=== PATIENT | male | born 1940 | race Caucasian/White ===

== ENCOUNTER 2017-11-12 16:57 | Observation (INO) | payer MEDICARE ==
[~2017-11-12] VITALS: Ht 175.3 cm; Wt 75.0 kg
[2017-11-12 17:12] VITALS: BP 184/92; PULSE 78; RESP 16; TEMP 97.5; O2SAT 98
--- NOTE | 2017-11-12 17:30 | PD ---
HPI Chief Complaint: Laceration/Skin Injury Time Seen by Provider: 17:08 Travel History International Travel<30 days: No Contact w/Intl Traveler<30days: No Traveled to known affect area: No History of Present Illness HPI 77-year-old male came to the emergency room with history of a fall in the [facility] when he was trying to reach out for a cup. Patient has history of recurrent falls. Patient does not remember exactly what happened and says he does not know if he passed out before or after. Patient has a forehead laceration. Vital signs are relatively stable. Patient is currently awake and answering questions. He complains of slight headache. The pain is mostly localized over the laceration area. Patient is on Plavix and the wound seems to be bleeding. Patient thinks that his last tetanus shot was less than 5 years ago. [facility] Past Medical History Narrative Medical List of his past medical, surgical, social and family history is reviewed from the nursing note Cardiovascular Problems: No Diabetes: No Social History Tobacco Use: No Allergies-Medications (Allergen,Severity, Reaction): Coded Allergies: No Known Allergies (Unverified , 11/12/17) Comments No known drug allergies per Reported Meds & Prescriptions Reported Meds & Active Scripts Active Reported Vitamin C (Ascorbic Acid) 250 Mg Chew 500 Mg CHEW DAILY Sucralfate 1 Gram Tab 1 Gm PO QID on empty stomach Potassium Chloride ER (Potassium Chloride) 10 Meq Cap 10 Meq PO BID Omeprazole 20 Mg Tab 20 Mg PO DAILY [place] (Hydrocodone-Acetaminophen) 5 Mg-325 Mg Tab 1 Tab PO Q4H PRN Multi-Vitamin Daily (Multiple Vitamin) 1 Tab Tab 1 Tab PO DAILY Melatonin 5 Mg Tab 3 Mg PO HS Lexapro (Escitalopram Oxalate) 10 Mg Tab 10 Mg PO DAILY Ibuprofen 800 Mg Tab 800 Mg PO Q6HR PRN Mucus Relief ER (Guaifenesin) 600 Mg Tab 600 Mg PO BID PRN Furosemide 20 Mg Tab 20 Mg PO BID Clopidogrel (Clopidogrel Bisulfate) 75 Mg Tab 75 Mg PO DAILY Bisacodyl EC (Bisacodyl) 5 Mg Tabec 5 Mg PO DAILY PRN Narrative Medication List of his home medications reviewed from the nursing note. Review of Systems Except as stated in HPI: all other systems reviewed are Neg HENT: Positive: Headaches Physical Exam Narrative GENERAL: Awake, alert, elderly, frail, mild distress SKIN: Focused skin assessment warm/dry. 2 inch forehead laceration that has jagged edges. Wound is bleeding. HEAD: Atraumatic. Normocephalic. EYES: Pupils equal and round. No scleral icterus. No injection or drainage. ENT: No nasal bleeding or discharge. Mucous membranes pink and moist. NECK: Trachea midline. No JVD. CARDIOVASCULAR: Regular rate and rhythm. No murmur appreciated. RESPIRATORY: No accessory muscle use. Clear to auscultation. Breath sounds equal bilaterally. GASTROINTESTINAL: Abdomen soft, non-tender, nondistended. Hepatic and splenic margins not palpable. MUSCULOSKELETAL: No obvious deformities. No clubbing. No cyanosis. No edema. NEUROLOGICAL: Awake and alert. No obvious cranial nerve deficits. Motor grossly within normal limits. Normal speech. PSYCHIATRIC: Appropriate mood and affect; insight and judgment normal. Data Data Last Documented VS Vital Signs Date Time Temp Pulse Resp B/P (MAP) Pulse Ox O2 Delivery O2 Flow Rate FiO2 11/12/17 17:12 97.5 78 16 184/92 (122) [address] Brain W/O Iv Contrast(Rout) (11/12/17 ) Ct Cerv Spine W/O Contrast (11/12/17 ) Complete Blood Count With Diff (11/12/17 17:34) Basic Metabolic Panel (Bmp) (11/12/17 17:34) Prothrombin Time / Inr (Pt) (11/12/17 17:34) Urinalysis - C+S If Indicated (11/12/17 17:34) Electrocardiogram (11/12/17 ) Drilling Inspector / Telemetry DORY.Q8H (11/12/17 17:34) Sodium Polysty Sulfate Liq (Kayexalate L (11/12/17 19:15) Calcium Gluconate Inj (Calcium Gluconate (11/12/17 19:15) Sodium Bicarbonate 8.4% Inj (Sodium Bica (11/12/17 19:30) Admit Order (Ed Use Only) (11/12/17 19:26) Labs Laboratory Tests Test 11/12/17 18:15 11/12/17 18:50 White Blood Count 4.8 TH/MM3 Red Blood Count 3.45 MIL/MM3 Hemoglobin 9.5 GM/DL Hematocrit 29.7 % Mean Corpuscular Volume 85.9 FL Mean Corpuscular Hemoglobin 27.4 PG Mean Corpuscular Hemoglobin Concent 31.8 % Red Cell Distribution Width 31.3 % Platelet Count 278 TH/MM3 Mean Platelet Volume 8.4 FL Neutrophils (%) (Auto) 55.5 % Lymphocytes (%) (Auto) 22.5 % Monocytes (%) (Auto) 17.4 % Eosinophils (%) (Auto) 3.0 % Basophils (%) (Auto) 1.6 % Neutrophils # (Auto) 2.7 TH/MM3 Lymphocytes # (Auto) 1.1 TH/MM3 Monocytes # (Auto) 0.8 TH/MM3 Eosinophils # (Auto) 0.1 TH/MM3 Basophils # (Auto) 0.1 TH/MM3 CBC Comment AUTO DIFF Differential Comment AUTO DIFF CONFIRMED Prothrombin Time 11.1 SEC Prothromb Time International Ratio 1.1 RATIO Blood Urea Nitrogen 17 MG/DL Creatinine 1.35 MG/DL Random Glucose 85 MG/DL Calcium Level 9.0 MG/DL Sodium Level 142 MEQ/L Potassium Level 5.7 MEQ/L Chloride Level 108 MEQ/L Carbon Dioxide Level 29.2 MEQ/L Anion Gap 5 MEQ/L Estimat Glomerular Filtration Rate 51 ML/MIN Urine Color LIGHT-YELLOW Urine Turbidity CLEAR Urine pH 7.5 Urine Specific [place] 1.005 Urine Protein NEG mg/dL Urine Glucose (UA) NEG mg/dL Urine Ketones NEG mg/dL Urine Occult Blood SMALL Urine Nitrite NEG Urine Bilirubin NEG Urine Urobilinogen LESS THAN 2.0 MG/DL Urine Leukocyte Esterase NEG Urine RBC LESS THAN 1 /hpf Urine WBC 2 /hpf Urine Squamous Epithelial Cells 1 /hpf Urine Mucus FEW /lpf Microscopic Urinalysis Comment CULT NOT INDICATED MDM Medical Decision Making Medical Screen Exam Complete: Yes Emergency Medical Condition: Yes Medical Record Reviewed: Yes Interpretation(s) Twelve-lead EKG was reviewed by me. Normal sinus rhythm, normal axis, peaked T waves. Heart rate of 76 bpm. Differential Diagnosis Intracranial bleed, cervical fracture, electrolyte abnormalities, UTI Narrative Course Blood test results are back. Potassium is elevated. On this I have chosen to treat him with Kayexalate and IV calcium gluconate. I will repeat the potassium in an hour of the treatment. The laceration was repaired by me. Please refer to my procedure note. Patient tolerated the procedure well. CT scan of the head and C-spine was negative for any injury. Given the fact that his fall could be a syncopal episode since patient does not know when it was not witnessed I would like to admit him for observation. Awaiting for the hospitalist callback. Critical Care Narrative Aggregate critical care time was 30 minutes. Time to perform other separately billable procedures was not included in the critical care time. My time did not include minutes spent treating any other patients simultaneously or on activities that did not directly contribute to the patient's treatment. The services I provided to this patient were to treat and/or prevent clinically significant deterioration that could result in: Hyperkalemia, treatment for correction I provided critical care services requiring my management, as noted below: Chart data review, documentation time, medication orders and management, vital sign assessments/reviewing monitor data, ordering and reviewing lab tests, ordering and interpreting/reviewing x-rays and diagnostic studies, care of the patient and discussion of the patient with the admitting physicians. Procedures Procedure Narrative LACERATION LOCATION: Mid forehead LENGTH: 2 inches NUMBER OF STITCHES/MANASA: 6 stitches REPAIR: The area of the laceration was prepped with Betadine and sterilely draped. The laceration was infiltrated with 2.5 mL's of 2% lidocaine. The wound was copiously irrigated and explored without evidence of foreign body, tendon injury or neurovascular injury. The wound was closed using 4-0 Ethilon. This was a single layer repair. A sterile dressing was applied. The patient was advised to keep the dressing clean and dry. Patient tolerated the procedure well. EKG Prior to Arrival: No Diagnosis Primary Impression: Fall Qualified Codes: W19.XXXA - Unspecified fall, initial encounter Additional Impressions: Forehead laceration Qualified Codes: S01.81XA - Laceration without foreign body of other part of head, initial encounter Hyperkalemia Admitting Information Admitting Physician Requests: Observation Hugh Diaz MD Nov 12, 2017 17:30
[2017-11-12] MEDS ORDERED: MELA5 PO (17:42)
[2017-11-12] MEDS ORDERED: LEXA10TA PO (17:42)
[2017-11-12] MEDS ORDERED: MULT-65 PO (17:42)
[2017-11-12] MEDS ORDERED: FLEE5TAB PO (17:42)
[2017-11-12] MEDS ORDERED: OMEP20TA93 PO (17:42)
[2017-11-12] MEDS ORDERED: POTA10CA PO (17:42)
[2017-11-12] MEDS ORDERED: CLOP75TA PO (17:42)
[2017-11-12] MEDS ORDERED: FURO20TA PO (17:42)
[2017-11-12] MEDS ORDERED: NORC5TAB PO (17:42)
[2017-11-12] MEDS ORDERED: SUCR1TAB PO (17:42)
[2017-11-12] MEDS ORDERED: VITA250C3 CHEW (17:42)
[2017-11-12] MEDS ORDERED: IBUP1TAB7 PO (17:42)
[2017-11-12] MEDS ORDERED: GUAI600T11 PO (17:42)
--- NOTE | 2017-11-12 18:00 | RADRPT ---
EXAM DATE/TIME: 11/12/2017 17:47 [facility] COMPARISON: No previous studies available for comparison. INDICATIONS : Trauma, fall forward onto head today. RADIATION DOSE: 33.48 CTDIvol (mGy) MEDICAL HISTORY : Congestive hearrt failure. Gastroesophageal reflux disease. Renal failure, acute. SURGICAL HISTORY : None. ENCOUNTER: Initial ACUITY: 1 day PAIN SCALE: Non-responsive LOCATION: Bilateral head TECHNIQUE: Multiple contiguous axial images were obtained of the head. Using automated exposure control and adj ustment of the mA and/or kV according to patient size, radiation dose was kept as low as reasonably a chievable to obtain optimal diagnostic quality images. DICOM format image data is available electro nically for review and comparison. FINDINGS: CEREBRUM: There is mild generalized atrophy. Ventricles are normal. There is mild periventricular white matter low attenuation. No evidence of midline shift, mass lesion, hemorrhage or acute infarction. No extr a-axial fluid collections are seen. POSTERIOR FOSSA: The cerebellum and brainstem demonstrate no acute finding. The 4th ventricle is midline. The cerebe llopontine angle is unremarkable. EXTRACRANIAL: There is opacification of the left maxillary, left ethmoid, and left frontal sinus. Scalp soft tissue swelling is present anteriorly near the high convexity. SKULL: The calvaria is intact. No evidence of skull fracture. CONCLUSION: 1. Anterior scalp soft tissue swelling near the high convexity. No skull fracture or acute intracrani al abnormality is identified. There are chronic brain changes. 2. There is opacification of the left maxillary, ethmoid, and frontal sinus. The appearance favors a chronic process. Sathish Mcgee MD on November 12, 2017 at 17:55 Board Certified Radiologist. This report was verified electronically.
--- NOTE | 2017-11-12 18:19 | RADRPT ---
EXAM DATE/TIME: 11/12/2017 17:47 [facility] COMPARISON: No previous studies available for comparison. INDICATIONS : Trauma, fall forward onto head today. RADIATION DOSE: 22.24 CTDIvol (mGy) MEDICAL HISTORY : Congestive hearrt failure. Renal failure, acute. Gastroesophageal reflux disease. SURGICAL HISTORY : None. ENCOUNTER: Initial ACUITY: 1 day PAIN SCALE: Non-responsive LOCATION: Bilateral neck TECHNIQUE: Volumetric scanning of the cervical spine was performed. Multiplanar reconstructions in the sagittal, coronal and oblique axial planes were performed. Using automated exposure control and adjustment o f the mA and/or kV according to patient size, radiation dose was kept as low as reasonably achievable to obtain optimal diagnostic quality images. DICOM format image data is available electronically f or review and comparison. FINDINGS: There is 3 mm of anterolisthesis of C3 on C4 likely related to the facet arthrosis at this level. The atlantoaxial relationship is within normal limits. There is no prevertebral soft tissue swelling pre sent. No fracture or dislocation is identified. There is joint space narrowing and osteophytes at the anterior length the dens interval. There is a decreased disc height with endplate osteophytes at C5- C6 and C6-C7. There is facet arthrosis at multiple levels along with uncovertebral osteophytes which cause severe left neural foraminal stenosis at C3-C4, moderate to severe neural foraminal stenosis on the right at C5-C6, and moderate bilateral neural foraminal stenosis at C6-C7. The visualized portions of the posterior fossa, paraspinous soft tissues, and upper lung zones demons trate no acute abnormality. CONCLUSION: 1. No cervical spine fracture or acute abnormality is identified. 2. 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 There are multiple areas of moderate to severe neural foraminal stenosis. Sathish Mcgee MD on November 12, 2017 at 18:12 Board Certified Radiologist. This report was verified electronically.
[2017-11-12 18:36] LABS: AUTOMATED NEUTROPHIL # 2.7 TH/MM3 (1.8-7.7); BASOPHIL # 0.1 TH/MM3 (0-0.2); BASOPHIL % 1.6 % (0.0-2.0); EOSINOPHIL # 0.1 TH/MM3 (0-0.4); HEMATOCRIT 29.7 % (39.0-51.0); HEMOGLOBIN 9.5 GM/DL (13.0-17.0); LYMPH % 22.5 % (9.0-44.0); LYMPHOCYTE # 1.1 TH/MM3 (1.0-4.8); MEAN CELL VOLUME 85.9 FL (80.0-100.0); MEAN CORPUSCULAR HEMOGLOBIN 27.4 PG (27.0-34.0); MEAN CORPUSCULAR HGB CONC 31.8 % (32.0-36.0); MEAN PLATELET VOLUME 8.4 FL (7.0-11.0); MONO % 17.4 % (0.0-8.0); MONOCYTE # 0.8 TH/MM3 (0-0.9); NEUT % 55.5 % (16.0-70.0); PLATELET COUNT 278 TH/MM3 (150-450); RED BLOOD COUNT 3.45 MIL/MM3 (4.50-5.90); RED CELL DISTRIBUTION WIDTH 31.3 % (11.6-17.2); WHITE BLOOD COUNT 4.8 TH/MM3 (4.0-11.0)
[2017-11-12 18:41] LABS: INTERNATIONAL NORMALIZED RATIO 1.1 RATIO; PROTHROMBIN TIME - PATIENT 11.1 SEC (9.8-11.6)
[2017-11-12 19:01] LABS: BICARBONATE 29.2 MEQ/L (21.0-32.0); CREATININE 1.35 MG/DL (0.60-1.30)
[2017-11-12 19:06] LABS: BILIRUBIN, URINE NEG (NEG); BLOOD, URINE SMALL (NEG); GLUCOSE,URINE NEG (NEG); KETONE, URINE NEG (NEG); MUCUS URINE FEW /lpf (OCC); NITRITE,URINE NEG (NEG); PH, URINE 7.5 (5.0-8.5); SQUAMOUS EPITHELIAL CELL URINE 1 /hpf (0-5); URINE COLOR LIGHT-YELLOW (YELLW/STRAW); URINE LEUKOCYTE ESTERASE NEG (NEG)
[2017-11-12] MEDS ORDERED: CALCIUM GLUCONATE 10% 1 GM/10 ML VIAL IV PUSH ONE (19:15)
[2017-11-12] MEDS ORDERED: SODIUM POLYSTYRENE SULFONATE SUSP 15 GM/60 ML CUP PO ONE (19:15)
[2017-11-12] MEDS ORDERED: SODIUM BICARBONATE 8.4% INJ 50 MEQ/50 ML SYR IV PUSH ONE (19:30)
[2017-11-12] MEDS ORDERED: PILL SPLITTER OTHER PRN (20:00)
[2017-11-12] MEDS ORDERED: ACETAMINOPHEN 325 MG TAB PO PRN (20:00)
[2017-11-12] MEDS ORDERED: SODIUM CHLORIDE 0.9% FLUSH 10 ML FLUSH IV FLUSH PRN (20:00)
--- NOTE | 2017-11-12 20:18 | HHI.HP ---
[facility] Gopal Horvath MD Admission Diagnosis Fall, possible syncope, forehead laceration, hyperkalemia Diagnoses: Travel History International Travel<30 Days: No Contact w/Intl Traveler <30 Da: No Traveled to Known Affected Are: No History of Present Illness 77-year-old male with past medical history significant for anemia, diastolic congestive heart failure, hypothyroidism, chronic kidney disease, GERD, dementia and depression presents to the emergency department for evaluation of a fall. The patient reports he was reaching for water in his assisted while lying down and tilted to far, losing his balance and fell to the ground hitting his head. He sustained a 5 cm laceration to his forehead which is status post repair. He denies any loss of consciousness prior to the event but states he may have lost consciousness when he hit the floor for a brief moment. Per assisted report, the patient has been suffering frequent falls. He cannot recount these episodes and states he may or may not have lost consciousness prior to falling in the past. There is a question of syncopal events. The patient denies any nausea/vomiting. No abdominal pain. No chest pain or shortness of breath. No lateralizing signs/symptoms. No fevers/chills. Review of Systems Except as stated in HPI: all other systems reviewed are Neg Past Family Social History Past Medical History (Obtained from assisted records as the patient does not know) anemia, diastolic congestive heart failure, hypothyroidism, chronic kidney disease, GERD, dementia and depression Past Surgical History Bilateral knee surgeries Reported Medications Reported Meds & Active Scripts Active Reported Vitamin C (Ascorbic Acid) 250 Mg Chew 500 Mg CHEW DAILY Sucralfate 1 Gram Tab 1 Gm PO QID on empty stomach Potassium Chloride ER (Potassium Chloride) 10 Meq Cap 10 Meq PO BID Omeprazole 20 Mg Tab 20 Mg PO DAILY [place] (Hydrocodone-Acetaminophen) 5 Mg-325 Mg Tab 1 Tab PO Q4H PRN Multi-Vitamin Daily (Multiple Vitamin) 1 Tab Tab 1 Tab PO DAILY Melatonin 5 Mg Tab 3 Mg PO HS Lexapro (Escitalopram Oxalate) 10 Mg Tab 10 Mg PO DAILY Ibuprofen 800 Mg Tab 800 Mg PO Q6HR PRN Mucus Relief ER (Guaifenesin) 600 Mg Tab 600 Mg PO BID PRN Furosemide 20 Mg Tab 20 Mg PO BID Clopidogrel (Clopidogrel Bisulfate) 75 Mg Tab 75 Mg PO DAILY Bisacodyl EC (Bisacodyl) 5 Mg Tabec 5 Mg PO DAILY PRN Allergies: Coded Allergies: No Known Allergies (Unverified , 11/12/17) Family History Negative for CAD/DM Social History Denies alcohol, tobacco and illicit drugs Physical Exam Vital Signs Vital Signs Date Time Temp Pulse Resp B/P (MAP) Pulse Ox O2 Delivery O2 Flow Rate FiO2 11/12/17 17:12 97.5 78 16 184/92 (122) 98 Physical Exam GENERAL: male lying in bed SKIN: 5 cm forehead laceration status post repair, hemostatic. HEAD: Normocephalic. No temporal or scalp tenderness. EYES: Pupils equal round and reactive. Extraocular motions intact. No scleral icterus. No injection or drainage. ENT: Nose without bleeding, purulent drainage or septal hematoma. Throat without erythema, tonsillar hypertrophy or exudate. Uvula midline. Airway patent. NECK: Trachea midline. No JVD or lymphadenopathy. Supple, nontender, no meningeal signs. CARDIOVASCULAR: Regular rate and rhythm without murmurs, gallops, or rubs. RESPIRATORY: Clear to auscultation. Breath sounds equal bilaterally. No wheezes , rales, or rhonchi. GASTROINTESTINAL: Abdomen soft, non-tender, nondistended. No hepato-splenomegaly , or palpable masses. No guarding. MUSCULOSKELETAL: Extremities without clubbing, cyanosis, or edema. No joint tenderness, effusion, or edema noted. No calf tenderness. NEUROLOGICAL: Awake and alert. Cranial nerves II through XII intact. Motor and sensory grossly within normal limits. Normal speech. Laboratory Laboratory Tests Test 11/12/17 18:15 11/12/17 18:50 White Blood Count 4.8 Red Blood Count 3.45 Hemoglobin 9.5 Hematocrit 29.7 Mean Corpuscular Volume 85.9 Mean Corpuscular Hemoglobin 27.4 Mean Corpuscular Hemoglobin Concent 31.8 Red Cell Distribution Width 31.3 Platelet Count 278 Mean Platelet Volume 8.4 Neutrophils (%) (Auto) 55.5 Lymphocytes (%) (Auto) 22.5 Monocytes (%) (Auto) 17.4 Eosinophils (%) (Auto) 3.0 Basophils (%) (Auto) 1.6 Neutrophils # (Auto) 2.7 Lymphocytes # (Auto) 1.1 Monocytes # (Auto) 0.8 Eosinophils # (Auto) 0.1 Basophils # (Auto) 0.1 CBC Comment AUTO DIFF Differential Comment AUTO DIFF CONFIRMED Prothrombin Time 11.1 Prothromb Time International Ratio 1.1 Blood Urea Nitrogen 17 Creatinine 1.35 Random Glucose 85 Calcium Level 9.0 Sodium Level 142 Potassium Level 5.7 Chloride Level 108 Carbon Dioxide Level 29.2 Anion Gap 5 Estimat Glomerular Filtration Rate 51 Urine Color LIGHT-YELLOW Urine Turbidity CLEAR Urine pH 7.5 Urine Specific [place] 1.005 Urine Protein NEG Urine Glucose (UA) NEG Urine Ketones NEG Urine Occult Blood SMALL Urine Nitrite NEG Urine Bilirubin NEG Urine Urobilinogen LESS THAN 2.0 Urine Leukocyte Esterase NEG Urine RBC LESS THAN 1 Urine WBC 2 Urine Squamous Epithelial Cells 1 Urine Mucus FEW Microscopic Urinalysis Comment CULT NOT INDICATED Result Diagram: 11/12/17181411/12/171814 Caprini VTE Risk Assessment Caprini VTE Risk Assessment: Mod/High Risk (score >= 2) Caprini Risk Assessment Model Point Value = 1 Point Value = 2 Point Value = 3 Point Value = 5 Age 41-60 Minor surgery BMI > 25 kg/m2 Swollen legs Varicose veins or History of unexplained or recurrent spontaneous Oral contraceptives or hormone replacement Sepsis (< 1 month) Serious lung disease, including pneumonia (< 1 month) Abnormal pulmonary function Acute myocardial infarction Congestive heart failure (< 1 month) History of inflammatory bowel disease Medical patient at bed rest Age 61-74 Arthroscopic surgery Major open surgery (> 45 min) Laparoscopic surgery (> 45 min) Malignancy Confined to bed (> 72 hours) Immobilizing plaster cast Central venous access Age >= 75 History of VTE Family history of VTE Factor V Leiden Prothrombin [id number] Lupus anticoagulant Anticardiolipin antibodies Elevated serum homocysteine Heparin-induced thrombocytopenia Other congenital or acquired thrombophilia Stroke (< 1 month) Elective arthroplasty Hip, pelvis, or leg fracture Acute spinal cord injury (< 1 month) Prophylaxis Regimen Total Risk Factor Score Risk Level Prophylaxis Regimen 0-1 Low Early ambulation 2 Moderate Order ONE of the following: *Sequential Compression Device (SCD) *Heparin 5000 units SQ BID 3-4 Higher Order ONE of the following medications: *Heparin 5000 units SQ TID *Enoxaparin/Lovenox 40 mg SQ daily (WT < 150 kg, CrCl > 30 mL/min) *Enoxaparin/Lovenox 30 mg SQ daily (WT < 150 kg, CrCl > 10-29 mL/min) *Enoxaparin/Lovenox 30 mg SQ BID (WT < 150 kg, CrCl > 30 mL/min) AND/OR *Sequential Compression Device (SCD) 5 or more Highest Order ONE of the following medications: *Heparin 5000 units SQ TID (Preferred with Epidurals) *Enoxaparin/Lovenox 40 mg SQ daily (WT < 150 kg, CrCl > 30 mL/min) *Enoxaparin/Lovenox 30 mg SQ daily (WT < 150 kg, CrCl > 10-29 mL/min) *Enoxaparin/Lovenox 30 mg SQ BID (WT < 150 kg, CrCl > 30 mL/min) AND *Sequential Compression Device (SCD) Assessment and Plan Assessment and Plan Assessment/plan: 1. Frequent falls/?syncope Physical therapy consulted, appreciate assistance Syncope workup pending; echo and carotid ultrasound 2. Hyperkalemia Potassium 5.7 Status post calcium gluconate and Kayexalate in ED Repeat BMP pending 3. Chronic kidney disease BUN/creatinine 17/1.35 Baseline unknown Monitor renal function 4. CHF/CAD Continue home medications including Plavix 5. Hypothyroidism/GERD/dementia Continue home medication FEN Heart healthy diet Electrolytes: as above Holding pharmacologic anticoagulation secondary to head trauma Melissa Etienne MD Nov 12, 2017 20:18
[2017-11-12 20:55] VITALS: BP 166/95; PULSE 89; RESP 15; O2SAT 97
[2017-11-12] MEDS ORDERED: MELATONIN 5 MG TAB PO SCH (21:00)
[2017-11-12 21:01] LABS: ALBUMIN 2.3 GM/DL (3.4-5.0); AST (GOT) 33 U/L (15-37); BICARBONATE 28.7 MEQ/L (21.0-32.0); BLOOD UREA NITROGEN 17 MG/DL (7-18); CALCIUM 9.1 MG/DL (8.5-10.1); CHLORIDE 108 MEQ/L (98-107); CREATININE 1.42 MG/DL (0.60-1.30); GLOMERULAR FILTRATION RATE 48 ML/MIN (>89); GLUCOSE,RANDOM 82 MG/DL (74-106); SODIUM (NA) 144 MEQ/L (136-145)
[2017-11-12 21:02] LABS: ALT (GPT) 27 U/L (12-78)
[2017-11-12 21:04] LABS: ALKALINE PHOSPHATASE 260 U/L (45-117); TOTAL BILIRUBIN ADULT 0.3 MG/DL (0.2-1.0); TOTAL PROTEIN 7.8 GM/DL (6.4-8.2)
--- NOTE | 2017-11-12 21:07 | RADRPT ---
EXAM DATE/TIME: 11/12/2017 20:19 [facility] COMPARISON: No previous studies available for comparison. INDICATIONS : Syncope. MEDICAL HISTORY : Congestive heart failure. Gastroesophageal reflux disease. Anemia. Thyroid disease. Acute renal juan a lure. Falls. SURGICAL HISTORY : Total right knee surgery. ENCOUNTER: Initial ACUITY: 1 day PAIN SCORE: 5/10 LOCATION: Bilateral neck PEAK SYSTOLIC VELOCITIES (cm/sec): ICA/CCA RATIO: Right: 1.2 Left: 0.9 ICA: Right: 70 Left: 52 CCA: Right: 56 Left: 60 ECA: Right: 61 Left: 73 VERTEBRAL: Right: 44 antegrade Left: 101 antegrade Elevated flow velocities and ICA/CCA ratios have been found to correlate with increased degrees of vessel stenosis, calculated as percentage of diameter relative to a normal segment of distal ICA/CCA FINDINGS: RIGHT CAROTID: No significant stenosis is visualized. There is atherosclerotic plaque within the mid common carotid artery and carotid bulb. LEFT CAROTID: No significant stenosis is visualized. There is mild atherosclerotic disease in the common carotid ar shayna and carotid bulb. VERTEBRAL ARTERIES: Antegrade flow is seen in both vertebral arteries. MISCELLANEOUS: None. CONCLUSION: 1. Atherosclerotic disease within the carotid bulbs bilaterally. No significant stenosis is identifie d within either internal carotid artery (less than 50% stenosis). 2. There is antegrade flow within both vertebral arteries. Sathish Mcgee MD on November 12, 2017 at 21:03 Board Certified Radiologist. This report was verified electronically.
[2017-11-12] MEDS: SODIUM CHLORIDE 0.9% FLUSH 10 ML FLUSH IV FLUSH SCH (21:58)
[2017-11-12] MEDS: FUROSEMIDE 20 MG TAB PO SCH (21:58)
[2017-11-12 23:23] LABS: BICARBONATE 29.8 MEQ/L (21.0-32.0); CALCIUM 8.7 MG/DL (8.5-10.1); CREATININE 1.31 MG/DL (0.60-1.30)
--- NOTE | 2017-11-12 23:50 | EKG ---
Date Performed: 11/12/2017 Time Performed: 18:01:45 PTAGE: 77 years EKG: Sinus rhythm NON-SPECIFIC ST/T WAVE CHANGES INCOMPLETE RIGHT BUNDLE BRANCH BLOCK BORDERLINE ECG NO PREVIOUS TRACING DOCTOR: Dirk Zimmerman Interpretating Date/Time 11/12/2017 23:49:31
[2017-11-13] VITALS (9 sets, daily range): BP systolic 111–167; BP diastolic 57–76; PULSE 59–81; RESP 16–18; TEMP 97.9–98.4; O2SAT 92–96
[2017-11-13] MEDS: SUCRALFATE 1 GM TAB PO SCH ×4 (00:37→18:00)
[2017-11-13] MEDS ORDERED: CLOPIDOGREL 75 MG TAB PO SCH (09:00)
[2017-11-13] MEDS ORDERED: ESCITALOPRAM OXALATE 10 MG TAB PO SCH (09:00)
[2017-11-13] MEDS ORDERED: PANTOPRAZOLE SOD 20 MG DELAYED RELEASE TAB PO SCH (09:00)
[2017-11-13] MEDS ORDERED: NON-FORMULARY DRUG (Omeprazole 20 MG) PO SCH (09:00)
[2017-11-13] MEDS: SODIUM CHLORIDE 0.9% FLUSH 10 ML FLUSH IV FLUSH SCH (09:11)
[2017-11-13] MEDS: FUROSEMIDE 20 MG TAB PO SCH (09:11)
--- NOTE | 2017-11-13 11:13 | HHI.PR ---
Subjective Remarks in no acute distress. denies pain. no sob, dizziness or chest pain. Objective Vitals Vital Signs Date Time Temp Pulse Resp B/P (MAP) Pulse Ox O2 Delivery O2 Flow Rate FiO2 11/13/17 09:40 97.9 65 16 126/65 (85) 95 120/63 (82) 111/57 (75) 11/13/17 04:00 72 11/13/17 03:27 97.9 69 16 129/57 (81) 92 11/13/17 01:00 65 11/12/17 21:07 11/12/17 20:55 89 15 166/95 (118) 97 Room Air 11/12/17 17:12 97.5 78 16 184/92 (122) 98 Result Diagram: 11/12/17 1815 11/12/17 2251 Imaging Last Impressions Head CT 11/12/17 0000 Signed Impressions: Service Date/Time: Sunday, November 12, 2017 17:47 - CONCLUSION: 1. Anterior scalp soft tissue swelling near the high convexity. No skull fracture or acute intracranial abnormality is identified. There are chronic brain changes. 2. There is opacification of the left maxillary, ethmoid, and frontal sinus. The appearance favors a chronic process. Sathish Mcgee MD Cervical Spine CT 11/12/17 0000 Signed Impressions: Service Date/Time: Sunday, November 12, 2017 17:47 - CONCLUSION: 1. No cervical spine fracture or acute abnormality is identified. 2. 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 There are multiple areas of moderate to severe neural foraminal stenosis. Sathish Mcgee MD Carotid Artery Ultrasound 11/12/17 0000 Signed Impressions: Service Date/Time: Sunday, November 12, 2017 20:19 - CONCLUSION: 1. Atherosclerotic disease within the carotid bulbs bilaterally. No significant stenosis is identified within either internal carotid artery (less than 50%% stenosis). 2. There is antegrade flow within both vertebral arteries. Sathish Mcgee MD Objective Remarks GENERAL: This is a well-nourished, well-developed patient, in no apparent distress. HEENT; sutures in place. CARDIOVASCULAR: Regular rate and regular rhythm without murmurs, gallops, or rubs. RESPIRATORY: Clear to auscultation. Breath sounds equal bilaterally. No wheezes , rales, or rhonchi. GASTROINTESTINAL: Abdomen soft, non-tender, nondistended. Normal, active bowel sounds MUSCULOSKELETAL: Extremities without clubbing, cyanosis, or edema. NEURO: Alert & Oriented x4 to person, place, time, situation. Moves all ext x4 Medications and IVs Inpatient Medications Acetaminophen (Tylenol) 650 mg Q6H PRN PO pain/fever > 100.4; Start 11/12/17 at 20:00 Calcium Gluconate (Calcium Gluconate Inj) 1 gm ONCE ONCE IV PUSH Last administered on 11/12/17 20:18; Start 11/12/17 at 19:15; Stop 11/12/17 at 19:16 ; Status DC Clopidogrel Bisulfate (Plavix) 75 mg DAILY PO Last administered on 11/13/17 09 :12; Start 11/13/17 at 09:00 Escitalopram Oxalate (Lexapro) 10 mg DAILY PO Last administered on 11/13/17 09 :11; Start 11/13/17 at 09:00 Furosemide (Lasix) 20 mg BID PO Last administered on 11/13/17 09:11; Start at 21:00 Melatonin (Melatonin) 2.5 mg HS PO Last administered on 11/12/17at 21:58; Start 11/12/17 at 21:00 Miscellaneous (Pill Splitter) 1 ea UNSCH PRN OTHER SEE LABEL COMMENTS; Start at 20:00 Pantoprazole Sodium (Protonix) 20 mg DAILY PO Last administered on 11/13/17at 09 :11; Start 11/13/17 at 09:00 Sodium Polystyrene Sulfonate (Kayexalate Liq) 15 gm ONCE ONCE PO Last administered on 11/12/17 20:17; Start 11/12/17 at 19:15; Stop 11/12/17 at 19:16 ; Status DC Sodium Bicarbonate (Sodium Bicarbonate 8.4% Inj) 50 meq ONCE ONCE IV PUSH Last administered on 11/12/17 20:18; Start 11/12/17 at 19:30; Stop 11/12/17 at 19:31; Status DC Sodium Chloride (NS Flush) 2 ml BID IV FLUSH Last administered on 11/13/17at 09: 11; Start 11/12/17 at 21:00 Sucralfate (Carafate) 1 gm QID PO Last administered on 11/13/17at 09:11; Start 11/12/17 at 21:00 A/P Assessment and Plan 1. Frequent falls/?syncope carotid doppler with no significant stenosis- echo pending- continue to monitor on telemetry. Physical therapy consulted, appreciate assistance 2. Hyperkalemia-resolved. 3. renal insufficiency with unknown duration- likely chronic. Baseline unknown Monitor renal function 4. CHF/CAD Continue home medications including Plavix 5. Hypothyroidism/GERD/dementia Continue home medication Discharge Planning pending echo and PT evaluation. Tamiko Hernandez MD Nov 13, 2017 11:13
[2017-11-13 12:11] LABS: AUTOMATED NEUTROPHIL # 3.5 TH/MM3 (1.8-7.7); BASOPHIL # 0.2 TH/MM3 (0-0.2); BASOPHIL % 2.9 % (0.0-2.0); EOSINOPHIL # 0.1 TH/MM3 (0-0.4); HEMATOCRIT 28.8 % (39.0-51.0); HEMOGLOBIN 9.3 GM/DL (13.0-17.0); LYMPH % 15.8 % (9.0-44.0); LYMPHOCYTE # 0.8 TH/MM3 (1.0-4.8); MEAN CELL VOLUME 84.9 FL (80.0-100.0); MEAN CORPUSCULAR HEMOGLOBIN 27.5 PG (27.0-34.0); MEAN CORPUSCULAR HGB CONC 32.4 % (32.0-36.0); MEAN PLATELET VOLUME 8.6 FL (7.0-11.0); MONO % 13.5 % (0.0-8.0); MONOCYTE # 0.7 TH/MM3 (0-0.9); NEUT % 65.8 % (16.0-70.0); PLATELET COUNT 289 TH/MM3 (150-450); RED BLOOD COUNT 3.39 MIL/MM3 (4.50-5.90); RED CELL DISTRIBUTION WIDTH 31.1 % (11.6-17.2); WHITE BLOOD COUNT 5.3 TH/MM3 (4.0-11.0)
--- NOTE | 2017-11-13 17:19 | ECHRPT ---
Indication: Syncope CONCLUSIONS Normal left ventricular size. Wall thickness is normal. The left ventricular systolic function is normal with an estimated ejection fraction in the range o f 50-55%. No regional wall motion abnormalities are present. Mild to moderate mitral valve regurgitation. Trileaflet aortic valve. Mild aortic valve sclerosis is present. Trace aortic valve regurgitation. There is trace tricuspid valve regurgitation. BP: / HR: Rhythm: MEASUREMENTS (Male / Female) Normal Values Technical Quality:Fair 2D ECHO LV Diastolic Diameter PLAX 5.1 cm 4.2 - 5.9 / 3.9 - 5.3 cm LV Systolic Diameter PLAX 4.2 cm IVS Diastolic Thickness 0.9 cm 0.6 - 1.0 / 0.6 - 0.9 cm LVPW Diastolic Thickness 1.0 cm 0.6 - 1.0 / 0.6 - 0.9 cm LV Relative Wall Thickness 0.4 RV Internal Dim ED PLAX 3.4 cm LVOT Diameter 2.5 cm LA Systolic Diameter LX 4.1 cm 3.0 - 4.0 / 2.7 - 3.8 cm M-MODE Aortic Root Diameter MM 2.7 cm LA Systolic Diameter MM 4.6 cm LA Ao Ratio MM 1.7 AV Cusp Separation MM 2.0 cm DOPPLER AV Peak Velocity 183.0 cm/s AV Peak Gradient 13.4 mmHg AI Peak Velocity 428.0 cm/s AI Peak Gradient 73.3 mmHg AI Pressure Half Time 475.0 ms LVOT Peak Velocity 112.0 cm/s LVOT Peak Gradient 5.0 mmHg AV Area Cont Eq pk 3.0 cm MV Area PHT 5.1 cm Mitral E Point Velocity 96.4 cm/s Mitral A Point Velocity 48.6 cm/s Mitral E to A Ratio 2.0 TR Peak Velocity 307.0 cm/s TR Peak Gradient 37.7 mmHg Right Atrial Pressure 10.0 mmHg Pulmonary Artery Systolic Pressu 47.7 mmHg Right Ventricular Systolic Press 47.7 mmHg FINDINGS LEFT VENTRICLE Normal left ventricular size. Wall thickness is normal. The left ventricular systolic function is normal with an estimated ejection fraction in the range o f 50-55%. No regional wall motion abnormalities are present. RIGHT VENTRICLE Normal right ventricular size and systolic function. LEFT ATRIUM The left atrial size is normal. RIGHT ATRIUM The right atrial size is normal. ATRIAL SEPTUM Normal atrial septal thickness without atrial level shunting by limited color doppler interrogation. AORTA The aortic root and proximal ascending aorta are normal in size on limited imaging. MITRAL VALVE Mild to moderate mitral valve regurgitation. AORTIC VALVE Trileaflet aortic valve. Mild aortic valve sclerosis is present. Trace aortic valve regurgitation. TRICUSPID VALVE Structurally normal tricuspid valve. There is trace tricuspid valve regurgitation. PULMONARY VALVE No pulmonary valve regurgitation or stenosis. VESSELS The inferior vena cava is normal in size. PERICARDIUM A left sided pleural effusion is present. Jorge Tucker MD (Electronically Signed) Final Date:13 November 2017 17:18
== END 2017-11-14 03:27 | disposition short-term general hospital (02) ==
LOC: NEPD 16:57 → NEDA 19:27 → NEPGCP 21:14
PROVIDERS: ADMIT Hospitalist; ATTEND Hospitalist
DX: S01.81XA Laceration without foreign body of other part of head, initial encounter (principal); R29.6 Repeated falls; I50.32 Chronic diastolic (congestive) heart failure; I25.10 Atherosclerotic heart disease of native coronary artery without angina pectoris; N18.9 Chronic kidney disease, unspecified; E03.9 Hypothyroidism, unspecified; E87.5 Hyperkalemia; F03.90 Unspecified dementia, unspecified severity, without behavioral disturbance, psychotic disturbance, mood disturbance, and anxiety; K21.9 Gastro-esophageal reflux disease without esophagitis; W01.0XXA Fall on same level from slipping, tripping and stumbling without subsequent striking against object, initial encounter; Y92.129 Unspecified place in nursing home as the place of occurrence of the external cause; F32.9 Major depressive disorder, single episode, unspecified
CPT/HCPCS: 12011; 70450; 72125; 80048; 81001; 85025; 85610; 93005; 93306; 93880; 96374; 96375; 97162; 99291; G0378; G8987; G8988; J0610; 80053